=== PATIENT | male | born 1945 | race Caucasian/White ===

== ENCOUNTER 2020-08-15 12:26 | Inpatient (IN) ==
[2020-08-15] MEDS ORDERED: SODIUM CHLORIDE 0.9% 1,500 ML IV STA (12:48)
[2020-08-15 13:23] LABS: Basophils % 0.1 % (0.0-0.8); Hematocrit 41.8 VOL% (42.0-52.0); Hemoglobin 13.8 GM/DL (14.0-18.0); Immature Granulocytes % 0.9 %; Immature Granulocytes Absolute 0.15 #; Lymphocytes # 0.4 10*3/uL (1.4-4.0); Lymphocytes % 2.6 % (21.2-54.2); Mean Corpuscular Volume 91.9 FL (87-102); Mean Platelet Volume 10.5 FL (9.6-12.0); Monocytes % 6.6 % (1.7-12.7); Neutrophils % 89.8 % (38.7-73.9); Platelet Count 162 T/CUMM (130-400); Red Blood Count 4.55 MC/CUMM (3.8-5.5); Red Cell Distribution Width 14.5 % (9.3-17.3); White Blood Count 16.5 T/CUMM (4-12)
[2020-08-15 13:50] LABS: Albumin 2.8 G/DL (3.4-5.0); Bilirubin,Total 1.4 MG/DL (0.2-1.0); Calcium 8.8 MG/DL (8.5-10.1); Osmolality,Calculated 263.9 MOS/KG (273-304); Potassium 3.2 MMOL/L (3.5-5.1); Total Protein 7.5 G/DL (6.4-8.3)
[2020-08-15 14:00] LABS: Bilirubin,Urine Negative (Negative); Blood, Urine Large mg/dL (Negative); Glucose,Urine (UA) Negative (Negative); Ketones,Urine 5 mg/dL (Negative); Mucus,Urine Occasional /LPF (Occasional); Nitrite,Urine Negative (Negative); Protein,Urine 100 MG/DL; RBC,Urine 10 /HPF (0-4); Squamous Epithelial Cell,Urine Occasional /HPF (0-10); Urine Appearance Slightly Hazy (Clear); Urine Color Yellow (Yellow); Urine Specific Gravity 1.016 (1.001-1.035); Urine Urobilinogen < 2.0 EU/DL (0.2-1.0); WBC,Urine 10 /HPF (0-6)
[2020-08-15] MEDS ORDERED: POTASSIUM CHLORIDE 20 MEQ TABLET PO STA (14:02)
[2020-08-15] MEDS ORDERED: cefTRIAXone 1,000 MG in SODIUM CHLORIDE 0.9% 100 ML IV STA (14:33)
[2020-08-15] MEDS ORDERED: AZITHROMYCIN INJ 500 MG in SODIUM CHLORIDE 0.9% 250 ML IV STA (14:33)
[2020-08-15 15:34] LABS: Band Neutrophils 4 % (0-10); Hypochromasia 1+; Lymphocytes 6 % (20-55); Platelet Estimate Normal; Segmented Neutrophils 86 % (50-85); Total Cells Counted 100
[2020-08-15] MEDS ORDERED: ACETAMINOPHEN 325 MG TABLET PO PRN (15:44)
[2020-08-15] MEDS ORDERED: ONDANSETRON 4 MG/2 ML VIAL IV PRN (15:44)
[2020-08-15] MEDS ORDERED: GLUCAGON 1 MG VIAL IM PRN (15:44)
[2020-08-15] MEDS ORDERED: guaiFENesin/DM ER 600-30 MG TABLET PO PRN (15:44)
[2020-08-15] MEDS ORDERED: MORPHINE 4 MG/1 ML VIAL IV PRN (15:44)
[2020-08-15] MEDS ORDERED: hydrALAZINE 20 MG/1 ML VIAL IV PRN (15:44)
[2020-08-15] MEDS ORDERED: DEXTROSE 50% 25 GM/50 ML VIAL IV PRN (15:44)
[2020-08-15] MEDS ORDERED: MAGNESIUM SULF RIDER 2 GM in PREMIX 1 EACH IV PRN (16:04)
[2020-08-15] MEDS ORDERED: MAGNESIUM SULF RIDER 4 GM in PREMIX 1 EACH IV PRN (16:04)
[2020-08-15] MEDS: SODIUM CHLORIDE 0.9% 1,000 ML IV SCH (18:08)
[2020-08-15] MEDS: DOCUSATE SODIUM 100 MG CAPSULE PO SCH (20:33)
[2020-08-16] MEDS: SODIUM CHLORIDE 0.9% 1,000 ML IV SCH ×2 (03:06→18:03)
[2020-08-16 07:19] LABS: Basophils % 0.1 % (0.0-0.8); Hematocrit 33.6 VOL% (42.0-52.0); Hemoglobin 11.1 GM/DL (14.0-18.0); Immature Granulocytes % 0.8 %; Immature Granulocytes Absolute 0.09 #; Lymphocytes # 0.7 10*3/uL (1.4-4.0); Lymphocytes % 6.1 % (21.2-54.2); Mean Corpuscular Volume 92.6 FL (87-102); Mean Platelet Volume 11.3 FL (9.6-12.0); Monocytes % 8.1 % (1.7-12.7); Neutrophils % 84.9 % (38.7-73.9); Platelet Count 134 T/CUMM (130-400); Red Blood Count 3.63 MC/CUMM (3.8-5.5); Red Cell Distribution Width 14.5 % (9.3-17.3); White Blood Count 11.3 T/CUMM (4-12)
[2020-08-16] MEDS: DOCUSATE SODIUM 100 MG CAPSULE PO SCH ×2 (08:23→20:12)
[2020-08-16] MEDS: PANTOPRAZOLE 40 MG TABLET PO SCH (08:24)
[2020-08-16] MEDS: AZITHROMYCIN 250 MG TABLET PO SCH (08:24)
[2020-08-16] MEDS: cefTRIAXone 1,000 MG in SYRINGE 1 EACH IV SCH (08:24)
[2020-08-16 08:39] LABS: Calcium 7.9 MG/DL (8.5-10.1); Potassium 2.9 MMOL/L (3.5-5.1); Risk Ratio 3.06; Thyroid Stimulating Hormone 1.37 uIU/ml (0.358-3.74); VLDL CHOLESTEROL 17.4 MG/DL
[2020-08-16] MEDS: TAMSULOSIN 0.4 MG CAPSULE PO SCH (10:29)
[2020-08-16] MEDS ORDERED: POTASSIUM CHLORIDE 20 MEQ/15 ML UDCUP PO STA (11:29)
[2020-08-17] MEDS: SODIUM CHLORIDE 0.9% 1,000 ML IV SCH ×5 (01:20→23:35)
[2020-08-17 06:05] LABS: Basophils % 0.1 % (0.0-0.8); Hematocrit 32.8 VOL% (42.0-52.0); Hemoglobin 11.1 GM/DL (14.0-18.0); Immature Granulocytes % 0.9 %; Immature Granulocytes Absolute 0.14 #; Lymphocytes # 0.4 10*3/uL (1.4-4.0); Lymphocytes % 2.5 % (21.2-54.2); Mean Corpuscular HGB Conc 33.8 GM/DL (32-36); Mean Corpuscular Volume 90.1 FL (87-102); Mean Platelet Volume 11.3 FL (9.6-12.0); Monocytes % 8.4 % (1.7-12.7); Neutrophils % 88.1 % (38.7-73.9); Platelet Count 142 T/CUMM (130-400); Red Blood Count 3.64 MC/CUMM (3.8-5.5); Red Cell Distribution Width 14.6 % (9.3-17.3); White Blood Count 16.1 T/CUMM (4-12)
[2020-08-17 06:30] LABS: Calcium 7.9 MG/DL (8.5-10.1); Osmolality,Calculated 282.7 MOS/KG (273-304); Potassium 2.8 MMOL/L (3.5-5.1)
[2020-08-17 06:31] LABS: Calcium 7.9 MG/DL (8.5-10.1); Osmolality,Calculated 284.5 MOS/KG (273-304); Potassium 2.8 MMOL/L (3.5-5.1)
[2020-08-17] MEDS: POTASSIUM CHLORIDE 20 MEQ/15 ML UDCUP PO ONE ×2 (08:13→08:17)
[2020-08-17] MEDS: PANTOPRAZOLE 40 MG TABLET PO SCH (08:14)
[2020-08-17] MEDS: cefTRIAXone 1,000 MG in SYRINGE 1 EACH IV SCH (08:14)
[2020-08-17] MEDS: POTASSIUM CHLORIDE 20 MEQ TABLET PO ONE ×2 (08:14→08:17)
[2020-08-17] MEDS: ASPIRIN EC 81 MG TABLET PO SCH (08:14)
[2020-08-17] MEDS: AZITHROMYCIN 250 MG TABLET PO SCH (08:14)
[2020-08-17] MEDS: TAMSULOSIN 0.4 MG CAPSULE PO SCH (08:14)
[2020-08-17] MEDS: DOCUSATE SODIUM 100 MG CAPSULE PO SCH ×2 (08:14→21:02)
[2020-08-17] MEDS: POTASSIUM CHLORIDE 20 MEQ TABLET PO SCH (08:17)
[2020-08-17] MEDS: hydroCHLOROthiazide 12.5 MG CAPSULE PO SCH (08:17)
[2020-08-17] MEDS: amLODIPine 5 MG TABLET PO SCH (08:18)
[2020-08-17] MEDS: ENALAPRIL 20 MG TABLET PO SCH (08:18)
[2020-08-17 09:20] LABS: Band Neutrophils 2 % (0-10); Lymphocytes 4 % (20-55); Platelet Estimate Adequate; Segmented Neutrophils 88 % (50-85); Total Cells Counted 100
[2020-08-17] MEDS ORDERED: VANCOMYCIN INJ 750 MG in SODIUM CHLORIDE 0.9% 250 ML IV ONE (10:00)
[2020-08-17] MEDS: ALBUTEROL 0.63 MG/3 ML NEB RESP TX SCH ×3 (11:51→19:35)
[2020-08-17] MEDS: POTASSIUM CHLORIDE 20 MEQ TABLET PO PRN ×2 (21:01→22:59)
[2020-08-18] MEDS: POTASSIUM CHLORIDE 20 MEQ TABLET PO PRN (01:22)
[2020-08-18] MEDS: SODIUM CHLORIDE 0.9% 1,000 ML IV SCH ×2 (01:27→18:03)
[2020-08-18 05:57] LABS: Basophils % 0.2 % (0.0-0.8); Eosinophils # 0.1 10*3/uL (0.0-0.87); Hematocrit 35.6 VOL% (42.0-52.0); Hemoglobin 11.8 GM/DL (14.0-18.0); Immature Granulocytes % 1.8 %; Immature Granulocytes Absolute 0.21 #; Lymphocytes # 0.6 10*3/uL (1.4-4.0); Lymphocytes % 4.8 % (21.2-54.2); Mean Corpuscular HGB Conc 33.1 GM/DL (32-36); Mean Corpuscular Volume 91.3 FL (87-102); Mean Platelet Volume 11.4 FL (9.6-12.0); Monocytes % 5.7 % (1.7-12.7); Neutrophils % 86.5 % (38.7-73.9); Platelet Count 153 T/CUMM (130-400); Red Cell Distribution Width 15.2 % (9.3-17.3); White Blood Count 11.9 T/CUMM (4-12)
[2020-08-18 06:23] LABS: Osmolality,Calculated 278.8 MOS/KG (273-304); Potassium 3.3 MMOL/L (3.5-5.1)
[2020-08-18 06:27] LABS: Eosinophils 1 % (0-10); Hypochromasia 1+; Lymphocytes 1 % (20-55); Microcytosis 1+; Platelet Estimate Adequate; Segmented Neutrophils 91 % (50-85); Total Cells Counted 100
[2020-08-18] MEDS: ALBUTEROL 0.63 MG/3 ML NEB RESP TX SCH ×5 (07:15→23:33)
[2020-08-18] MEDS ORDERED: traZODone 50 MG TABLET PO PRN (09:38)
[2020-08-18] MEDS: ASPIRIN EC 81 MG TABLET PO SCH (10:14)
[2020-08-18] MEDS: hydroCHLOROthiazide 12.5 MG CAPSULE PO SCH (10:14)
[2020-08-18] MEDS: PANTOPRAZOLE 40 MG TABLET PO SCH (10:15)
[2020-08-18] MEDS: ENALAPRIL 20 MG TABLET PO SCH (10:15)
[2020-08-18] MEDS: amLODIPine 5 MG TABLET PO SCH (10:15)
[2020-08-18] MEDS: DOCUSATE SODIUM 100 MG CAPSULE PO SCH ×3 (11:05→20:46)
[2020-08-18] MEDS: AZITHROMYCIN 250 MG TABLET PO SCH (11:06)
[2020-08-18] MEDS: cefTRIAXone 1,000 MG in SYRINGE 1 EACH IV SCH (11:06)
[2020-08-18] MEDS: NAFCILLIN 2,000 MG in SODIUM CHLORIDE 0.9% 100 ML IV SCH ×3 (11:43→20:45)
[2020-08-18] MEDS: POTASSIUM CHLORIDE 20 MEQ TABLET PO SCH (17:28)
[2020-08-18] MEDS: TAMSULOSIN 0.4 MG CAPSULE PO SCH (17:29)
[2020-08-19] MEDS: NAFCILLIN 2,000 MG in SODIUM CHLORIDE 0.9% 100 ML IV SCH ×6 (01:06→20:48)
[2020-08-19] MEDS: ALBUTEROL 0.63 MG/3 ML NEB RESP TX SCH ×5 (03:00→23:24)
[2020-08-19] MEDS: amLODIPine 5 MG TABLET PO SCH (09:57)
[2020-08-19] MEDS: hydroCHLOROthiazide 12.5 MG CAPSULE PO SCH (09:57)
[2020-08-19] MEDS: TAMSULOSIN 0.4 MG CAPSULE PO SCH (11:56)
[2020-08-19] MEDS: DOCUSATE SODIUM 100 MG CAPSULE PO SCH ×2 (11:56→20:49)
[2020-08-19] MEDS: ASPIRIN EC 81 MG TABLET PO SCH (11:56)
[2020-08-19] MEDS: ENALAPRIL 20 MG TABLET PO SCH (11:57)
[2020-08-19] MEDS: PANTOPRAZOLE 40 MG TABLET PO SCH (11:57)
[2020-08-19] MEDS: POTASSIUM CHLORIDE 20 MEQ TABLET PO SCH (11:57)
[2020-08-19] MEDS ORDERED: fentaNYL 100 MCG/2 ML VIAL ONE (14:00)
[2020-08-19] MEDS ORDERED: propofoL 200 MG/20 ML VIAL IV ONE (14:01)
[2020-08-19] MEDS ORDERED: LIDOCAINE 2% 5 ML VIAL ONE (14:01)
[2020-08-19] MEDS ORDERED: FAMOTIDINE 20 MG/2 ML VIAL IV ONE (14:04)
[2020-08-19] MEDS ORDERED: ONDANSETRON 4 MG/2 ML VIAL ONE (15:00)
[2020-08-19] MEDS ORDERED: SEVOFLURANE 1 UNIT/15 MINUTE INH ONE (15:00)
[2020-08-19] MEDS: SODIUM CHLORIDE 0.9% 1,000 ML IV SCH (16:55)
[2020-08-20] MEDS: NAFCILLIN 2,000 MG in SODIUM CHLORIDE 0.9% 100 ML IV SCH ×6 (01:16→20:28)
[2020-08-20] MEDS: ALBUTEROL 0.63 MG/3 ML NEB RESP TX SCH ×8 (03:00→19:45)
[2020-08-20] MEDS: SODIUM CHLORIDE 0.9% 1,000 ML IV SCH ×2 (06:27→16:03)
[2020-08-20 08:04] LABS: Basophils # 0.1 10*3/uL (0.0-0.2); Basophils % 0.5 % (0.0-0.8); Eosinophils # 0.3 10*3/uL (0.0-0.87); Eosinophils % 3.1 % (0.00-10.9); Hemoglobin 11.8 GM/DL (14.0-18.0); Immature Granulocytes % 1.4 %; Immature Granulocytes Absolute 0.15 #; Lymphocytes # 1.5 10*3/uL (1.4-4.0); Lymphocytes % 14.2 % (21.2-54.2); Mean Corpuscular HGB Conc 34.7 GM/DL (32-36); Mean Corpuscular Volume 88.5 FL (87-102); Mean Platelet Volume 10.6 FL (9.6-12.0); Neutrophils % 72.8 % (38.7-73.9); Platelet Count 220 T/CUMM (130-400); Red Blood Count 3.84 MC/CUMM (3.8-5.5); White Blood Count 10.8 T/CUMM (4-12)
[2020-08-20 08:24] LABS: Band Neutrophils 9 % (0-10); Eosinophils 3 % (0-10); Lymphocytes 11 % (20-55); Platelet Estimate Normal; Segmented Neutrophils 67 % (50-85); Total Cells Counted 100
[2020-08-20 08:25] LABS: Anisocytosis Slight
[2020-08-20 08:26] LABS: Toxic Granulation 1+
[2020-08-20 08:29] LABS: Calcium 8.1 MG/DL (8.5-10.1); Osmolality,Calculated 288.7 MOS/KG (273-304); Potassium 2.8 MMOL/L (3.5-5.1)
[2020-08-20] MEDS: amLODIPine 5 MG TABLET PO SCH (09:19)
[2020-08-20] MEDS: ASPIRIN EC 81 MG TABLET PO SCH (09:19)
[2020-08-20] MEDS: hydroCHLOROthiazide 12.5 MG CAPSULE PO SCH (09:19)
[2020-08-20] MEDS: DOCUSATE SODIUM 100 MG CAPSULE PO SCH ×2 (09:19→20:28)
[2020-08-20] MEDS: TAMSULOSIN 0.4 MG CAPSULE PO SCH (09:19)
[2020-08-20] MEDS: PANTOPRAZOLE 40 MG TABLET PO SCH (09:20)
[2020-08-20] MEDS: ENALAPRIL 20 MG TABLET PO SCH (09:20)
[2020-08-20] MEDS: POTASSIUM CHLORIDE 20 MEQ TABLET PO SCH (09:20)
[2020-08-20] MEDS: POTASSIUM CHLORIDE 20 MEQ TABLET PO PRN ×4 (11:30→18:11)
[2020-08-21] MEDS: ALBUTEROL 0.63 MG/3 ML NEB RESP TX SCH ×6 (00:40→19:40)
[2020-08-21] MEDS: NAFCILLIN 2,000 MG in SODIUM CHLORIDE 0.9% 100 ML IV SCH ×2 (01:10→05:09)
[2020-08-21 01:44] LABS: Basophils # 0.1 10*3/uL (0.0-0.2); Basophils % 0.5 % (0.0-0.8); Eosinophils # 0.4 10*3/uL (0.0-0.87); Eosinophils % 3.9 % (0.00-10.9); Hematocrit 33.4 VOL% (42.0-52.0); Hemoglobin 11.5 GM/DL (14.0-18.0); Immature Granulocytes % 1.9 %; Immature Granulocytes Absolute 0.21 #; Lymphocytes # 2.1 10*3/uL (1.4-4.0); Lymphocytes % 18.8 % (21.2-54.2); Mean Corpuscular HGB Conc 34.4 GM/DL (32-36); Mean Corpuscular Volume 88.4 FL (87-102); Mean Platelet Volume 10.1 FL (9.6-12.0); Monocytes % 9.7 % (1.7-12.7); Neutrophils % 65.2 % (38.7-73.9); Platelet Count 261 T/CUMM (130-400); Red Blood Count 3.78 MC/CUMM (3.8-5.5); Red Cell Distribution Width 16.1 % (9.3-17.3); White Blood Count 10.9 T/CUMM (4-12)
[2020-08-21 05:59] LABS: Calcium 8.1 MG/DL (8.5-10.1); Osmolality,Calculated 287.7 MOS/KG (273-304); Potassium 2.9 MMOL/L (3.5-5.1)
[2020-08-21] MEDS: ASPIRIN EC 81 MG TABLET PO SCH (09:01)
[2020-08-21] MEDS: ENALAPRIL 20 MG TABLET PO SCH (09:02)
[2020-08-21] MEDS: DOCUSATE SODIUM 100 MG CAPSULE PO SCH ×2 (09:02→21:21)
[2020-08-21] MEDS: PANTOPRAZOLE 40 MG TABLET PO SCH (09:02)
[2020-08-21] MEDS: POTASSIUM CHLORIDE 20 MEQ TABLET PO SCH ×2 (09:02→21:21)
[2020-08-21] MEDS: amLODIPine 5 MG TABLET PO SCH (09:02)
[2020-08-21] MEDS: ceFAZolin 2,000 MG in PREMIX 1 EACH IV SCH ×2 (09:14→17:02)
[2020-08-21] MEDS: TAMSULOSIN 0.4 MG CAPSULE PO SCH (09:14)
[2020-08-21] MEDS: hydroCHLOROthiazide 12.5 MG CAPSULE PO SCH (09:14)
[2020-08-21] MEDS: SODIUM CHLORIDE 0.9% 1,000 ML IV SCH ×2 (09:19→22:59)
[2020-08-21] MEDS ORDERED: POTASSIUM CHLORIDE 20 MEQ/15 ML UDCUP PER TUBE PRN (09:27)
[2020-08-22] MEDS: ALBUTEROL 0.63 MG/3 ML NEB RESP TX SCH ×6 (00:35→19:45)
[2020-08-22] MEDS: ceFAZolin 2,000 MG in PREMIX 1 EACH IV SCH ×3 (00:50→17:53)
[2020-08-22 06:58] LABS: Basophils # 0.1 10*3/uL (0.0-0.2); Basophils % 0.6 % (0.0-0.8); Eosinophils # 0.3 10*3/uL (0.0-0.87); Eosinophils % 3.2 % (0.00-10.9); Hematocrit 34.2 VOL% (42.0-52.0); Hemoglobin 11.5 GM/DL (14.0-18.0); Immature Granulocytes % 1.5 %; Immature Granulocytes Absolute 0.16 #; Lymphocytes # 1.9 10*3/uL (1.4-4.0); Lymphocytes % 17.6 % (21.2-54.2); Mean Corpuscular HGB Conc 33.6 GM/DL (32-36); Mean Corpuscular Volume 89.5 FL (87-102); Mean Platelet Volume 10.3 FL (9.6-12.0); Monocytes % 7.4 % (1.7-12.7); Neutrophils % 69.7 % (38.7-73.9); Platelet Count 306 T/CUMM (130-400); Red Blood Count 3.82 MC/CUMM (3.8-5.5); Red Cell Distribution Width 16.5 % (9.3-17.3); White Blood Count 10.5 T/CUMM (4-12)
[2020-08-22 07:24] LABS: Calcium 8.3 MG/DL (8.5-10.1); Osmolality,Calculated 279.3 MOS/KG (273-304); Potassium 3.1 MMOL/L (3.5-5.1)
[2020-08-22] MEDS: DOCUSATE SODIUM 100 MG CAPSULE PO SCH ×2 (09:59→21:06)
[2020-08-22] MEDS: ASPIRIN EC 81 MG TABLET PO SCH (09:59)
[2020-08-22] MEDS: TAMSULOSIN 0.4 MG CAPSULE PO SCH (09:59)
[2020-08-22] MEDS: amLODIPine 5 MG TABLET PO SCH (09:59)
[2020-08-22] MEDS: POTASSIUM CHLORIDE 20 MEQ TABLET PO SCH ×2 (10:00→21:07)
[2020-08-22] MEDS: hydroCHLOROthiazide 12.5 MG CAPSULE PO SCH (10:00)
[2020-08-22] MEDS: PANTOPRAZOLE 40 MG TABLET PO SCH (10:04)
[2020-08-22] MEDS: ENALAPRIL 20 MG TABLET PO SCH (10:04)
[2020-08-22] MEDS: SODIUM CHLORIDE 0.9% 1,000 ML IV SCH (14:20)
[2020-08-23] MEDS: ALBUTEROL 0.63 MG/3 ML NEB RESP TX SCH ×7 (01:00→23:00)
[2020-08-23] MEDS: ceFAZolin 2,000 MG in PREMIX 1 EACH IV SCH ×3 (03:19→17:58)
[2020-08-23] MEDS: SODIUM CHLORIDE 0.9% 1,000 ML IV SCH ×2 (03:34→13:45)
[2020-08-23 05:57] LABS: Basophils # 0.1 10*3/uL (0.0-0.2); Basophils % 0.4 % (0.0-0.8); Eosinophils # 0.5 10*3/uL (0.0-0.87); Eosinophils % 3.9 % (0.00-10.9); Hematocrit 35.3 VOL% (42.0-52.0); Hemoglobin 11.6 GM/DL (14.0-18.0); Immature Granulocytes % 1.7 %; Lymphocytes # 1.9 10*3/uL (1.4-4.0); Lymphocytes % 15.8 % (21.2-54.2); Mean Corpuscular HGB Conc 32.9 GM/DL (32-36); Mean Corpuscular Volume 91.5 FL (87-102); Monocytes % 7.6 % (1.7-12.7); Neutrophils % 70.6 % (38.7-73.9); Platelet Count 326 T/CUMM (130-400); Red Blood Count 3.86 MC/CUMM (3.8-5.5); Red Cell Distribution Width 16.6 % (9.3-17.3); White Blood Count 11.8 T/CUMM (4-12)
[2020-08-23 06:15] LABS: Calcium 8.2 MG/DL (8.5-10.1); Osmolality,Calculated 277.4 MOS/KG (273-304); Potassium 3.4 MMOL/L (3.5-5.1)
[2020-08-23] MEDS: ASPIRIN EC 81 MG TABLET PO SCH (09:41)
[2020-08-23] MEDS: TAMSULOSIN 0.4 MG CAPSULE PO SCH (09:41)
[2020-08-23] MEDS: hydroCHLOROthiazide 12.5 MG CAPSULE PO SCH (09:42)
[2020-08-23] MEDS: amLODIPine 5 MG TABLET PO SCH ×2 (09:42→21:13)
[2020-08-23] MEDS: PANTOPRAZOLE 40 MG TABLET PO SCH (09:42)
[2020-08-23] MEDS: POTASSIUM CHLORIDE 20 MEQ TABLET PO SCH ×2 (09:42→21:13)
[2020-08-23] MEDS: DOCUSATE SODIUM 100 MG CAPSULE PO SCH ×2 (09:42→21:24)
[2020-08-23] MEDS: ENALAPRIL 20 MG TABLET PO SCH (09:42)
[2020-08-23 15:39] LABS: Basophils # 0.1 10*3/uL (0.0-0.2); Basophils % 0.4 % (0.0-0.8); Eosinophils # 0.4 10*3/uL (0.0-0.87); Eosinophils % 3.5 % (0.00-10.9); Hematocrit 35.3 VOL% (42.0-52.0); Hemoglobin 11.6 GM/DL (14.0-18.0); Immature Granulocytes % 1.5 %; Immature Granulocytes Absolute 0.18 #; Lymphocytes # 2.2 10*3/uL (1.4-4.0); Lymphocytes % 17.5 % (21.2-54.2); Mean Corpuscular HGB Conc 32.9 GM/DL (32-36); Mean Corpuscular Volume 92.9 FL (87-102); Mean Platelet Volume 9.4 FL (9.6-12.0); Monocytes % 8.1 % (1.7-12.7); Platelet Count 350 T/CUMM (130-400); Red Cell Distribution Width 16.7 % (9.3-17.3); White Blood Count 12.3 T/CUMM (4-12)
[2020-08-24] MEDS: ceFAZolin 2,000 MG in PREMIX 1 EACH IV SCH ×3 (02:51→17:22)
[2020-08-24] MEDS: SODIUM CHLORIDE 0.9% 1,000 ML IV SCH (02:51)
[2020-08-24] MEDS: ALBUTEROL 0.63 MG/3 ML NEB RESP TX SCH ×6 (03:00→23:00)
[2020-08-24 09:09] LABS: Basophils # 0.1 10*3/uL (0.0-0.2); Basophils % 0.5 % (0.0-0.8); Eosinophils # 0.3 10*3/uL (0.0-0.87); Eosinophils % 2.9 % (0.00-10.9); Hematocrit 37.2 VOL% (42.0-52.0); Hemoglobin 12.1 GM/DL (14.0-18.0); Immature Granulocytes % 1.3 %; Immature Granulocytes Absolute 0.13 #; Lymphocytes # 1.8 10*3/uL (1.4-4.0); Lymphocytes % 18.5 % (21.2-54.2); Mean Corpuscular HGB Conc 32.5 GM/DL (32-36); Mean Platelet Volume 9.9 FL (9.6-12.0); Monocytes % 5.6 % (1.7-12.7); Neutrophils % 71.2 % (38.7-73.9); Platelet Count 383 T/CUMM (130-400); Red Cell Distribution Width 16.7 % (9.3-17.3); White Blood Count 9.6 T/CUMM (4-12)
[2020-08-24] MEDS: hydroCHLOROthiazide 12.5 MG CAPSULE PO SCH (09:12)
[2020-08-24] MEDS: ASPIRIN EC 81 MG TABLET PO SCH (09:12)
[2020-08-24] MEDS: TAMSULOSIN 0.4 MG CAPSULE PO SCH (09:12)
[2020-08-24] MEDS: PANTOPRAZOLE 40 MG TABLET PO SCH (09:13)
[2020-08-24] MEDS: POTASSIUM CHLORIDE 20 MEQ TABLET PO SCH ×2 (09:13→21:46)
[2020-08-24] MEDS: ENALAPRIL 20 MG TABLET PO SCH (09:13)
[2020-08-24] MEDS: DOCUSATE SODIUM 100 MG CAPSULE PO SCH ×2 (09:20→21:46)
[2020-08-24 09:36] LABS: Calcium 8.5 MG/DL (8.5-10.1); Osmolality,Calculated 275.5 MOS/KG (273-304); Potassium 3.6 MMOL/L (3.5-5.1)
[2020-08-24] MEDS: amLODIPine 5 MG TABLET PO SCH (21:47)
[2020-08-25] MEDS: ALBUTEROL 0.63 MG/3 ML NEB RESP TX SCH ×3 (03:00→11:00)
[2020-08-25] MEDS: ceFAZolin 2,000 MG in PREMIX 1 EACH IV SCH ×2 (04:07→09:21)
[2020-08-25 05:50] LABS: Basophils # 0.1 10*3/uL (0.0-0.2); Basophils % 0.5 % (0.0-0.8); Eosinophils # 0.2 10*3/uL (0.0-0.87); Eosinophils % 2.3 % (0.00-10.9); Hematocrit 34.6 VOL% (42.0-52.0); Hemoglobin 11.4 GM/DL (14.0-18.0); Immature Granulocytes % 1.6 %; Immature Granulocytes Absolute 0.16 #; Lymphocytes # 1.9 10*3/uL (1.4-4.0); Lymphocytes % 18.6 % (21.2-54.2); Mean Corpuscular HGB Conc 32.9 GM/DL (32-36); Mean Corpuscular Volume 93.3 FL (87-102); Mean Platelet Volume 9.7 FL (9.6-12.0); Monocytes % 7.5 % (1.7-12.7); Neutrophils % 69.5 % (38.7-73.9); Platelet Count 379 T/CUMM (130-400); Red Blood Count 3.71 MC/CUMM (3.8-5.5); Red Cell Distribution Width 16.6 % (9.3-17.3); White Blood Count 10.3 T/CUMM (4-12)
[2020-08-25 06:12] LABS: Calcium 8.6 MG/DL (8.5-10.1); Osmolality,Calculated 272.8 MOS/KG (273-304); Potassium 4.1 MMOL/L (3.5-5.1)
[2020-08-25] MEDS: DOCUSATE SODIUM 100 MG CAPSULE PO SCH (09:21)
[2020-08-25] MEDS: ASPIRIN EC 81 MG TABLET PO SCH (09:21)
[2020-08-25] MEDS: POTASSIUM CHLORIDE 20 MEQ TABLET PO SCH (09:22)
[2020-08-25] MEDS: TAMSULOSIN 0.4 MG CAPSULE PO SCH (09:22)
[2020-08-25] MEDS: ENALAPRIL 20 MG TABLET PO SCH (09:22)
[2020-08-25] MEDS: PANTOPRAZOLE 40 MG TABLET PO SCH (09:22)
[2020-08-25] MEDS: hydroCHLOROthiazide 12.5 MG CAPSULE PO SCH (09:22)
[2020-08-25 12:08] VITALS: BP 139/68
== END 2020-08-25 16:07 | disposition home health service (06) | DRG 660 ==
LOC: N.EDINP 12:26 → N.ED 12:26 → SUATTDRO 15:44 → N.EDINP 17:55 → N.3E 18:16 → SUATTDRO 08-18 13:38
PROVIDERS: ADMIT Internal Medicine; ATTEND Family Medicine